=== PATIENT | female | born 1960 | race Caucasian/White ===

== ENCOUNTER 2019-05-08 10:38 | Outpatient (CLI) | payer OTHER ==
--- NOTE | 2019-05-11 03:17 | XRAY Report ---
Reason: KNEE PX Procedure Date: 05/08/2019 Accession Number: [id number] / [id number] Procedure: XR - Knee 2 View RT CPT Code: FULL RESULT: EXAM: RIGHT KNEE RADIOGRAPHY EXAM DATE: 05/08/2019 11:40 AM. CLINICAL HISTORY: KNEE PX. COMPARISON: None. TECHNIQUE: 3 views. FINDINGS: Bones: Normal. No fractures or bone lesions. Joints: There is moderate joint space narrowing of the medial compartment there is no chondrocalcinosis. There are degenerative changes at the patellofemoral articulation. Soft Tissues: There is a small joint effusion. IMPRESSION: 1. Moderate joint space narrowing the medial compartment. 2. Joint effusion. RADIA
== END 2019-05-08 10:39 | disposition home or self-care (01) ==
LOC: DI 10:38
PROVIDERS: ATTEND Family Medicine
DX: M17.11 Unilateral primary osteoarthritis, right knee (principal); M25.461 Effusion, right knee

== ENCOUNTER 2019-08-14 08:05 | Outpatient (CLI) | payer OTHER ==
[2019-08-14 12:07] LABS: BASOPHILS % (AUTO) 0.5 %; EOSINOPHILS # (AUTO) 0.1 10^3/uL (0.0-0.7); HGB - HEMOGLOBIN 13.3 g/dL (12.0-16.0); LYMPHOCYTES # (AUTO) 1.5 10^3/uL (1.5-3.5); LYMPHOCYTES % (AUTO) 20.6 %; MEAN CORPUSCULAR HEMOGLOBIN 30.3 pg (27.0-31.0); MEAN CORPUSCULAR HGB CONC 31.2 g/dL (32.0-36.0); MEAN PLATELET VOLUME 9.5 fL (7.9-10.8); MONOCYTES # (AUTO) 0.5 10^3/uL (0.0-1.0); MONOCYTES % (AUTO) 7.2 %; NEUTROPHILS # (AUTO) 5.2 10^3/uL (1.5-6.6); NEUTROPHILS % (AUTO) 70.4 %; PLT - PLATELET COUNT 339 10^3/uL (130-450); RED BLOOD COUNT 4.39 10^6/uL (4.20-5.40); WHITE BLOOD COUNT 7.3 x10^3/uL (4.8-10.8)
[2019-08-14 12:32] LABS: ALBUMIN 4.1 g/dL (3.2-5.5); ALBUMIN/GLOBULIN RATIO 1.2 (1.0-2.2); ALKALINE PHOSPHATASE 63 IU/L (42-121); ALT ALANINE AMINOTRANSFERASE 18 IU/L (10-60); AST ASPARTATE AMINOTRANSFERASE 21 IU/L (10-42); BILIRUBIN,TOTAL 0.4 mg/dL (0.2-1.0); BUN - BLOOD UREA NITROGEN 15 mg/dL (6-20); CALCIUM 9.3 mg/dL (8.5-10.3); CARBON DIOXIDE - CO2 30 mmol/L (21-32); CHLORIDE 104 mmol/L (101-111); CHOL/HDL RATIO 3.7 (<4.4); CHOLESTEROL 213 mg/dL; CREATININE 0.4 mg/dL (0.4-1.0); GFR - MDRD 162 (>89); GLUCOSE 108 mg/dL (70-100); HDL CHOLESTEROL 58 mg/dL; LDL CHOLESTEROL,CALCULATED 136 mg/dL; LDL/HDL RATIO 2.3 (<4.4); SODIUM 143 mmol/L (135-145); TOTAL PROTEIN 7.5 g/dL (6.7-8.2); VLDL CHOLESTEROL 19 mg/dL
[2019-08-14 12:40] LABS: HB2 TOTAL 13.5 g/dL; HEMOGLOBIN A1C 0.71 g/dL
== END 2019-08-14 23:59 | disposition home or self-care (01) ==
LOC: LAB.WCP 08:05
PROVIDERS: ATTEND Nurse Practitioner Family
DX: E11.9 Type 2 diabetes mellitus without complications (principal); I10 Essential (primary) hypertension; E66.01 Morbid (severe) obesity due to excess calories
CPT/HCPCS: 36415; 80053; 80061; 83036; 83721; 84443; 85025

== ENCOUNTER 2019-09-09 09:24 | Outpatient (CLI) | payer OTHER ==
--- NOTE | 2019-09-10 11:34 | Mammography Report ---
Reason: SCREENING MAMMO Procedure Date: 09/09/2019 Accession Number: [id number] / [id number] Procedure: MGN - Screening Mammo Dig Bilat CPT Code: Final Report FULL RESULT: EXAM: Screening Mammo Dig Bilat DATE: 09/09/2019 9:55 AM CLINICAL HISTORY: Screening encounter. History of early menses. TECHNIQUE: (B) - Bilateral CC, laterally exaggerated CC, MLO views were obtained. COMPARISON: 08/08/2011. PARENCHYMAL PATTERN: (F) - The breast(s) demonstrate(s) diffuse fatty replacement. FINDINGS: There are coarse typically benign calcifications. There are no suspicious masses, calcifications, or areas of distortion. IMPRESSION: Benign findings. BI-RADS category 2. RECOMMENDATION: (ANNUAL) - Recommend routine annual screening mammography. BI-RADS CATEGORY: (2) - Benign Findings. STANDARD QUALIFYING STATEMENTS: 1. This examination was not reviewed with the aid of Computer-Aided Detection (CAD). 2. A negative or benign imaging report should not preclude biopsy if clinically suspicious findings are present. 3. Dense breasts may obscure an underlying neoplasm. 4. This examination was reviewed without the aid of 3D breast imaging (tomosynthesis).
== END 2019-09-09 09:25 | disposition home or self-care (01) ==
LOC: DI.N 09:24
DX: Z12.31 Encounter for screening mammogram for malignant neoplasm of breast (principal)
CPT/HCPCS: 77067

== ENCOUNTER 2020-09-15 07:19 | Outpatient (CLI) | payer MEDICAID, OTHER ==
[2020-09-15 13:46] LABS: BASOPHILS # (AUTO) 0.1 10^3/uL (0.0-0.1); BASOPHILS % (AUTO) 0.8 %; EOSINOPHILS # (AUTO) 0.1 10^3/uL (0.0-0.7); EOSINOPHILS % (AUTO) 1.7 %; HCT - HEMATOCRIT 43.6 % (37.0-47.0); HGB - HEMOGLOBIN 13.9 g/dL (12.0-16.0); LYMPHOCYTES % (AUTO) 26.3 %; MEAN CORPUSCULAR HGB CONC 31.9 g/dL (32.0-36.0); MEAN CORPUSCULAR VOLUME 100.2 fL (81.0-99.0); MONOCYTES # (AUTO) 0.6 10^3/uL (0.0-1.0); NEUTROPHILS # (AUTO) 4.7 10^3/uL (1.5-6.6); NEUTROPHILS % (AUTO) 63.1 %; PLT - PLATELET COUNT 274 10^3/uL (130-450); RED BLOOD COUNT 4.35 10^6/uL (4.20-5.40); RED CELL DISTRIBUTION WIDTH 13.3 % (12.0-15.0); WHITE BLOOD COUNT 7.5 x10^3/uL (4.8-10.8)
[2020-09-15 14:11] LABS: ALBUMIN 4.1 g/dL (3.2-5.5); ALBUMIN/GLOBULIN RATIO 1.4 (1.0-2.2); ALKALINE PHOSPHATASE 63 IU/L (42-121); ALT ALANINE AMINOTRANSFERASE 19 IU/L (10-60); AST ASPARTATE AMINOTRANSFERASE 23 IU/L (10-42); BILIRUBIN,TOTAL 0.5 mg/dL (0.2-1.0); BUN - BLOOD UREA NITROGEN 16 mg/dL (6-20); CALCIUM 9.3 mg/dL (8.5-10.3); CARBON DIOXIDE - CO2 28 mmol/L (21-32); CHLORIDE 103 mmol/L (101-111); CHOL/HDL RATIO 4.3 (<4.4); CHOLESTEROL 231 mg/dL; CREATININE 0.5 mg/dL (0.4-1.0); GFR - MDRD 125 (>89); GLUCOSE 117 mg/dL (70-100); HDL CHOLESTEROL 54 mg/dL; LDL CHOLESTEROL,CALCULATED 159 mg/dL; LDL/HDL RATIO 2.9 (<4.4); POTASSIUM 4.1 mmol/L (3.5-5.0); SODIUM 140 mmol/L (135-145); TRIGLYCERIDES 92 mg/dL; VLDL CHOLESTEROL 18 mg/dL
[2020-09-15 14:17] LABS: THYROID STIMULATING HORMONE 5.92 uIU/mL (0.34-5.60)
[2020-09-15 14:23] LABS: ESTIMATED AVERAGE GLUCOSE 134 mg/dL (70-100); HEMOGLOBIN A1c% 6.3 % (4.27-6.07)
[2020-09-15 15:51] LABS: FREE T4 (FREE THYROXINE) 0.66 ng/dL (0.58-1.64)
== END 2020-09-15 23:59 | disposition home or self-care (01) ==
LOC: LAB.WCP 07:19
PROVIDERS: ATTEND Nurse Practitioner Family
DX: I10 Essential (primary) hypertension (principal)
CPT/HCPCS: 36415; 80053; 80061; 82043; 82570; 83036; 83721; 84439; 84443; 85025

== ENCOUNTER 2020-09-30 07:41 | Outpatient (CLI) | payer MEDICAID ==
--- NOTE | 2020-09-30 09:28 | XRAY Report ---
PROCEDURE: Lumbar Spine 2 View INDICATIONS: CHRONIC LOW BACK PX TECHNIQUE: 3 views of the lumbar spine were acquired. COMPARISON: None. FINDINGS: Bones: 5 [id number] vertebrae are present. There is moderate levoscoliosis of lumbar spine power tered at L3 level. Degenerative endplate changes and bilateral facet arthrosis at L2-3 through L5-S1 levels are seen. Minimal anterolisthesis of L4 on L5 is seen. No acute vertebral body compression fra ctures. No suspicious bony lesions. Soft tissues: Overlying bowel gas pattern is normal. No suspicious soft tissue calcifications. IMPRESSION: Moderate scoliosis and grade 1 anterolisthesis of L4 on L5. No acute compression fractur e. Degenerative disc disease throughout lumbar spine. Reviewed by: Nicholas Mclaughlin MD on 09/30/2020 9:26 AM PST Approved by: Nicholas Mclaughlin MD on 09/30/2020 9:26 AM PST Station ID: [id number]
--- NOTE | 2020-09-30 09:29 | XRAY Report ---
PROCEDURE: Thoracic Spine 2 View INDICATIONS: CHRONIC UPPER BACK PX TECHNIQUE: 3 views of the thoracic spine were acquired. COMPARISON: None. FINDINGS: Bones: Moderate to severe dextroscoliosis of thoracic spine is seen centered at T9 level. Age indeter minant compression deformity of T10 vertebral body is noted with up to 50% loss of T10 vertebral body height. Degenerative endplate changes are noted throughout thoracic spine. No suspicious bony lesion s. 12 pairs of ribs are noted, and appear intact where visualized. Soft tissues: No paravertebral stripe thickening. IMPRESSION: Age-indeterminate compression deformity involving T10 vertebral body with moderate to severe rightwar d scoliosis of thoracic spine centered at T9-10 level. No other compression fracture or spondylolisth esis. Degenerative disc disease throughout mid to lower thoracic spine. Reviewed by: Nicholas Mclaughlin MD on 09/30/2020 9:28 AM PST Approved by: Nicholas Mclaughlin MD on 09/30/2020 9:28 AM PST Station ID: [id number]
--- NOTE | 2020-09-30 09:30 | XRAY Report ---
PROCEDURE: Cervical Spine 2 View INDICATIONS: CHRONIC NECK PX TECHNIQUE: 3 view(s) of the cervical spine were acquired. COMPARISON: None. FINDINGS: Bones: No fractures or dislocations to the C7-T1 level. Minimal anterolisthesis of C2 on C3 and C3 o n C4 is seen. Degenerative endplate changes are noted at C5-6 and C6-7 levels. The lateral masses of C1 appear intact on the odontoid view. No suspicious bony lesions. Soft tissues: No prevertebral soft tissue swelling. IMPRESSION: Minimal anterolisthesis of C2 on C3 and C3 on C4. Degenerative disc disease in mid to lo wer cervical spine. No acute fracture or dislocation. Reviewed by: Nicholas Mclaughlin MD on 09/30/2020 9:29 AM PST Approved by: Nicholas Mclaughlin MD on 09/30/2020 9:29 AM PST Station ID: [id number]
== END 2020-09-30 07:42 | disposition home or self-care (01) ==
LOC: DI.N 07:41
PROVIDERS: ATTEND Family Medicine
DX: M51.36 Other intervertebral disc degeneration, lumbar region (principal); M51.34 Other intervertebral disc degeneration, thoracic region; M50.322 Other cervical disc degeneration at C5-C6 level; M41.9 Scoliosis, unspecified

== ENCOUNTER 2020-10-21 10:23 | Outpatient (CLI) | payer MEDICAID ==
--- NOTE | 2020-10-21 14:17 | MRI Report ---
PROCEDURE: Thoracic Spine W/O INDICATIONS: WEDGE COMPREESIN FRACTURE OF T9-T10, SCOLIOSIS TECHNIQUE: Noncontrast sagittal T1 spine echo and T2 fast spin echo, sagittal STIR, axial T1 and T2 fast spin ec ho through the thoracic spine. COMPARISON: None. FINDINGS: Image quality: Excellent. Alignment and Curvature: S-shaped thoracolumbar scoliotic curvature. Bone Marrow: Marrow is of normal overall signal. No acute vertebral body compression fractures. Spinal Cord: Visualized spinal cord is normal in size and signal. Paraspinous Soft Tissues: No paravertebral masses. Miscellaneous: On axial images, central canal is patent at all scanned levels. Disc bulges at T3-T4, T4-T5, T5-T6, T6-T7, T7-T8, T8-T9, and T11-T12. No canal stenosis. Left foraminal narrowing at T6-T7 , T7-T8, T8-T9, T9-T10, and T10-T11. IMPRESSION: 1. S-shaped thoracolumbar scoliotic curvature. 2. No compression fractures identified. 3. Multilevel disc bulges, without canal stenosis. 4. Multilevel left-sided foraminal narrowing. Reviewed by: Jayden De La Rosa MD on 10/21/2020 2:15 PM PST Approved by: Jayden De La Rosa MD on 10/21/2020 2:15 PM PST Station ID: [id number]
== END 2020-10-21 10:24 | disposition home or self-care (01) ==
LOC: DI 10:23
PROVIDERS: ATTEND Family Medicine
DX: M48.04 Spinal stenosis, thoracic region (principal)

== ENCOUNTER 2023-05-30 09:14 | Outpatient (CLI) | payer OTHER ==
--- NOTE | 2023-05-30 08:48 | CARDIAC PROCEDURE NOTE ---
Stress Test Report Service Date: 05/30/23 Service Time: 09:30 Ordering Provider: Melinda Haro PA-C Indication for Test: Assess intermittent chest discomfort. Significant Medical History: Mouna is referred for a treadmill stress echocardiogram today, to assess intermittent, nearly exclusively non-exertional, chest discomfort that has been present for several months. The symptoms occur approximately once or twice weekly, consisting of nonradiating central substernal chest discomfort with a feeling of tightness. She attributes the vast majority of these episodes to interpersonal stress, which she is working to reduce. She has some orthopedic limitations, including history of scoliosis, compression vertebral fractures at T9 and T10, and "bad knees" that limit her ability to be very active. However she does have a nearly 70 pound 8-month-old puppy whom she walks intermittently nearly daily, on routes that do not include hills, which she avoids for fear of exacerbating her knee pain. She denies associated diaphoresis, nausea and unexpected shortness of breath when she has the stress- related chest discomfort. Cardiac Risk Factors: Positive for hypertension (treated for >20 yrs, most recently on lisinopril with reported readings mostly <130 and <80); hyperlipidemia (last known lipid panel in 2019 with TChol 231, TG 92, HDLc 54, LDLc 159, not previously treated); some family history of ASCVD on both sides (most notable for 2 paternal uncles with presumed/proven CAD) and probable diabetes (HbA1c 6.3%, s/p adverse reaction to metformin and not on hypoglycemic therapy presently). No history of tobacco smoking. Type of Stress Test: ETT with Echocardiography Procedure: -Exercise Treadmill Test- After signing informed consent, the patient underwent baseline echo imaging at rest and then performed treadmill exercise using a Modified Rigo protocol. The patient exercised for 9 minutes 14 seconds and achieved a peak heart rate of 150 (96 percent predicted maximum heart rate for age), and an estimated workload of 4.9 METS. The test was terminated due to fatigue/shortness of breath and inability to keep up with the increased speed and incline of the treadmill in stage 4 of the modified Rigo protocol. Resting heart rate: 77 Peak heart rate: 150 Normal response to exercise. Resting BP: 146/77 Peak BP: 241/87 Robust (but normal) increase in systolic BP and abnormal increase in diastolic BP in response to exercise. Rhythm during exercise: Sinus rhythm throughout, with rare isolated PVCs. Symptoms: She did describe mild chest pressure towards the end of the exercise protocol, though discomfort was more left-sided than her usual central substernal discomfort. EKG at rest showed normal sinus rhythm with early precordial R/S transition; normal ST/T pattern. EKG at peak stress showed no ischemia by EKG criteria. In Recovery heart rate rapidly/normally returned towards resting baseline level, with slower reduction in BP (158/66 at 5:37). Echo imaging, performed at rest and with stress, will be reported separately. IJovanny MD, was present throughout this treadmill stress study and supervised it in its entirety. Summary: 1) Exercise tolerance likely average or slightly increased for age and sex as evidenced by JULIO of -43% (on the modified Rigo scale, which may overestimate achieved workload). 2) Normal resting EKG. 3) Adequate level of exercise was achieved on this treadmill stress test. 4) Normal systolic BP response to exercise, with abnormal increase in diastolic BP (typical for treated hypertension). 5) No ischemic changes by EKG criteria were seen at peak stress. 6) Echo image interpretation reveals normal left ventricular size, wall thickness and systolic function, with appropriate hyperdynamic augmentation of all segments with exercise, indicating no evidence of prior infarct or inducible ischemia. No significant valvular abnormality or elevation of estimated pulmonary artery systolic pressure seen on screening study. See separate report for more details. Conclusions and Recommendations: 1) Overall the results are reassuring that Mouna's chest discomfort is likely non-ischemic in etiology, given negative EKG and echo results. 2) Based on the (possibly limited) data available to us at this encounter (a single HbA1c measurement) she may have diabetes, not currently treated pharmacologically. I told her I am recommending that this be examined in more detail (if not done already), with fasting glucoses, and/or glucose tolerance test if appropriate, both to address specifically her need for hypoglycemic meds AND to determine the need for a statin for presumed primary ASCVD risk redu ction. She is not enthusiastic about starting a statin but would do so if her care team feels this is mandatory.
== END 2023-05-30 09:15 | disposition home or self-care (01) ==
LOC: DI 09:14
PROVIDERS: ATTEND Physician Assistant
DX: R07.9 Chest pain, unspecified (principal); I10 Essential (primary) hypertension; E78.5 Hyperlipidemia, unspecified; Z82.49 Family history of ischemic heart disease and other diseases of the circulatory system; I49.3 Ventricular premature depolarization
CPT/HCPCS: 93350

== ENCOUNTER 2024-02-16 10:46 | Outpatient (CLI) | payer MEDICARE ==
[2024-02-16 18:16] LABS: BASOPHILS # (AUTO) 0.1 10^3/uL (0.0-0.1); BASOPHILS % (AUTO) 0.9 %; EOSINOPHILS # (AUTO) 0.1 10^3/uL (0.0-0.7); EOSINOPHILS % (AUTO) 1.5 %; HCT - HEMATOCRIT 41.4 % (37.0-47.0); HGB - HEMOGLOBIN 13.1 g/dL (12.0-16.0); MEAN CORPUSCULAR HEMOGLOBIN 31.1 pg (27.0-31.0); MEAN CORPUSCULAR HGB CONC 31.6 g/dL (32.0-36.0); MEAN CORPUSCULAR VOLUME 98.3 fL (81.0-99.0); MEAN PLATELET VOLUME 9.3 fL (7.9-10.8); MONOCYTES # (AUTO) 0.5 10^3/uL (0.0-1.0); MONOCYTES % (AUTO) 7.6 %; NEUTROPHILS # (AUTO) 4.2 10^3/uL (1.5-6.6); NEUTROPHILS % (AUTO) 60.9 %; PLT - PLATELET COUNT 322 10^3/uL (130-450); RED BLOOD COUNT 4.21 10^6/uL (4.20-5.40); WHITE BLOOD COUNT 6.9 x10^3/uL (4.8-10.8)
[2024-02-16 18:28] LABS: ALBUMIN 4.2 g/dL (3.2-5.5); ALBUMIN/GLOBULIN RATIO 1.5 (1.0-2.2); ALKALINE PHOSPHATASE 76 IU/L (42-121); ALT ALANINE AMINOTRANSFERASE 16 IU/L (10-60); AST ASPARTATE AMINOTRANSFERASE 17 IU/L (10-42); BILIRUBIN,TOTAL 0.4 mg/dL (0.2-1.0); BUN - BLOOD UREA NITROGEN 10 mg/dL (6-20); CALCIUM 9.9 mg/dL (8.5-10.3); CARBON DIOXIDE - CO2 30 mmol/L (21-32); CHLORIDE 103 mmol/L (101-111); CHOL/HDL RATIO 3.6 (<4.4); CHOLESTEROL 239 mg/dL; CREATININE 0.5 mg/dL (0.6-1.3); GFR - MDRD 124 (>89); GLUCOSE 173 mg/dL (74-104); HDL CHOLESTEROL 67 mg/dL; LDL CHOLESTEROL,CALCULATED 140 mg/dL; LDL/HDL RATIO 2.1 (<4.4); POTASSIUM 4.1 mmol/L (3.5-4.5); SODIUM 139 mmol/L (135-145); TRIGLYCERIDES 158 mg/dL (48-352); VLDL CHOLESTEROL 32 mg/dL
[2024-02-16 18:59] LABS: THYROID STIMULATING HORMONE 3.08 uIU/mL (0.34-5.60)
[2024-02-16 21:17] LABS: ESTIMATED AVERAGE GLUCOSE 232 mg/dL (70-100); HEMOGLOBIN A1c% 9.7 % (4.27-6.07)
== END 2024-02-16 10:47 | disposition home or self-care (01) ==
LOC: LAB.N 10:46
PROVIDERS: ATTEND Physician Assistant
DX: I10 Essential (primary) hypertension (principal); E11.9 Type 2 diabetes mellitus without complications; E78.5 Hyperlipidemia, unspecified; D64.9 Anemia, unspecified
CPT/HCPCS: 36415; 80053; 80061; 82043; 82570; 83036; 83721; 84443; 85025